=== PATIENT | female | born 1955 | race Two or more races ===

== ENCOUNTER 2018-04-12 13:54 | Outpatient (CLI) | payer OTHER | END 2018-04-12 15:09 | disposition home or self-care (01) | LOC: RAD 13:54 | DX: M25.571 Pain in right ankle and joints of right foot (principal) ==

== ENCOUNTER → 2018-12-31 | Outpatient (CLI) | payer OTHER | END | disposition home or self-care (01) | LOC: MAMO-SONO 13:59 | DX: N64.4 Mastodynia (principal); Z12.31 Encounter for screening mammogram for malignant neoplasm of breast ==

== ENCOUNTER 2021-04-29 13:14 | Outpatient (CLI) | payer OTHER | END 2021-04-29 13:15 | disposition home or self-care (01) | LOC: NUCLEAR 13:14 | PROVIDERS: ATTEND General Practice | DX: M81.0 Age-related osteoporosis without current pathological fracture (principal) ==